=== PATIENT | female | born 2000 | race African-American/Black ===

== ENCOUNTER 2022-09-20 15:05 | Emergency (ER) | payer BC, SELFPAY ==
[2022-09-20 15:13] VITALS: BP 122/76; PULSE 73; TEMP 36.3; O2SAT 96; BMI 42.1
--- NOTE | 2022-09-20 15:36 | ED.WOUNDLAC ---
HPI - Wound/Laceration General Chief Complaint: Laceration/Wound Stated Complaint: Cut on R middle finger Time Seen by Provider: 09/20/22 15:11 History of Present Illness HPI narrative: This 22-year-old female comes in with a laceration to her right middle finger. 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 This caused a laceration to the palmar aspect of the distal portion of her right middle finger. She states that her tetanus status is up-to-date. Related Data Home Medications Medication Instructions Recorded Confirmed testosterone 1 % (25 mg/2.5 gram) 1 packet transdermal 08/20/22 08/20/22 transdermal gel packet Allergies Allergy/AdvReac Type Severity Reaction Status Date / Time No Known Drug Allergies Allergy Verified 08/20/22 18:40 Review of Systems Status of ROS: Reports: 10 or more systems reviewed and unremarkable except as noted in History and below Narrative: Constitutional: No fevers, no weight gain or loss. Eyes: No discharge. No vision changes. HENT: No congestion, no sore throat, no ear pain. Cardiovascular: No chest pain, no palpitations. Respiratory: No shortness of breath, no wheezes, no cough. Gastrointestinal: No abdominal pain, no vomiting, no diarrhea. Genitourinary: No dysuria, no hematuria. Musculoskeletal: Normal range of motion. Skin: No rashes, no pruritis. Neurological: No dizziness, weakness, sensory change, speech change. Endo/Heme/Allergies: No bruising or bleeding. No polydipsia. Pysch: no suicidality, no anxiety, no insomnia. All other systems reviewed and are negative. [facility] Medical History (Updated 09/20/22 @ 15:39 by Shahram Plata MD) Allergic rhinitis ?J30.9 - Allergic rhinitis, unspecified (ICD-10) AOM (acute otitis media) ?H66.90 - Otitis media, unspecified, unspecified ear (ICD-10) Social History Smoking Status: Never smoker How often do you have a drink containing alcohol: monthly or less AUDIT-C Alcohol total score: 1 Non-prescribed substance use: declined to answer Exam Narrative: Exam Narrative: Constitutional: Well-developed, well-nourished, no acute distress. HEENT: Normocephalic, atraumatic. Neck: Normal range of motion. Nontender. Supple. Heart: Intact distal pulses. Lungs: No chest discomfort. No wheezes, rhonchi, or rales. Abdomen: Nontender. Back: Normal range of motion. Extremities: Normal range of motion. 1 cm linear laceration on the distal portion of the right middle finger. Tendon function is intact. Skin: Intact. No rash. Warm. No erythema or pallor. Neurologic: No altered sensation. No weakness. Alert and oriented. Psychiatric: No suicidality. No anxiety or depression. No insomnia. Nursing notes and vitals signs are reviewed. Const: Vital Signs, click to edit/add: Vital Signs - 24 hr 09/20/22 15:13 Temperature 97.4 F L Pulse Rate [Pulse Oximeter] 73 Blood Pressure [Ri ght Upper Arm] 122/76 Pulse Oximetry 96 Oxygen Delivery Me thod Room Air Course Vital Signs Vital signs: Initial Vital Signs Temperature 97.4 F L 09/20/22 15:13 Temperature Source Temporal Artery Scan 09/20/22 15:13 Pulse Rate 73 09/20/22 15:13 Blood Pressure 122/76 09/20/22 15:13 Blood Pressure Mean 91 09/20/22 15:13 Blood Pressure Position Supine 09/20/22 15:13 Pulse Oximetry 96 09/20/22 15:13 Oxygen Delivery Method Room Air 09/20/22 15:13 Vital Signs Temperature 97.4 F L 09/20/22 15:13 Pulse Rate 73 09/20/22 15:13 Blood Pressure 122/76 09/20/22 15:13 Pulse Oximetry 96 09/20/22 15:13 Oxygen Delivery Method Room Air 09/20/22 15:13 Temperature 97.4 F L 09/20/22 15:13 Pulse Rate 73 09/20/22 15:13 Blood Pressure 122/76 09/20/22 15:13 Pulse Oximetry 96 09/20/22 15:13 Oxygen Delivery Method Room Air 09/20/22 15:13 MDM - Wound/Laceration MDM Narrative Medical decision making narrative: This patient comes in with a 1 cm linear laceration on the distal portion of her right middle finger. The wound was cleansed and options were presented regarding strategies for wound repair. The patient preferred Dermabond which was applied with excellent results. The skin edges are well approximated. Two Band-Aids were applied which provide some splinting of the distal joint of the middle finger. Instructions were given regarding wound care. Discharge Plan Discharge Clinical Impression: Laceration Condition: Improved Additional Instructions: Keep wound clean and dry. Activity as tolerated. Follow up with MD or return if worsening. Prescriptions: No Action testosterone 1 % (25 mg/2.5gram) gel in packet 1 packet transdermal Patient Comments: PLEASE SEE ATTACHED FOR DETAILED DIRECTIONS Follow Up/Referrals: Lubna Henderson, [employer], [employer]INCIPAL [employer] [Primary Care Provider] - Stand Alone Forms: [employer] Info Instructions
== END 2022-09-20 15:47 | disposition home or self-care (01) ==
PROVIDERS: Emergency Provider Emergency Medicine Emergency Medical Services; PCP Nurse Practitioner Family
DX: S61.212A Laceration without foreign body of right middle finger without damage to nail, initial encounter (principal); W25.XXXA Contact with sharp glass, initial encounter
CPT/HCPCS: 12001; 99283; 99284

== ENCOUNTER 2023-10-16 12:25 | Outpatient (CLI) | payer BC, SELFPAY | END 2023-10-16 12:26 | disposition home or self-care (01) | LOC: NFLDREF 10-18 11:18 | PROVIDERS: PCP Family Medicine; Referring Provider Family Medicine; Visit Provider Nurse Practitioner Family | DX: R07.9 Chest pain, unspecified (principal) | CPT/HCPCS: 84484 ==